=== PATIENT | male | born 1980 | race American Indian/Alaskan Native ===

== ENCOUNTER 2016-12-20 20:19 | Emergency (ER) | payer SELFPAY ==
[2016-12-20 21:25] VITALS: BP 129/84
[2016-12-20] MEDS ORDERED: XYLOCAINE 1% MPF 5 mL INFILTRATI ONE (22:31)
[2016-12-20] MEDS ORDERED: XYLOCAINE 1% MPF 5 mL ONE (22:34)
--- NOTE | 2016-12-20 22:53 | Emergency Department Report ---
ED General Adult HPI - General Chief complaint: Animal Bite Stated complaint: BUG BIT ON RIGHT LEG Time Seen by Provider: 12/20/16 22:28 Source: patient Mode of arrival: Ambulatory Limitations: No Limitations - History of Present Illness Initial comments: pt endorses "I went to sleep 3 days ago and woke up with insect bite it was itching so I scratched it and now its infected" abscess 1x3 cm right anterior thigh, Onset/Timin -: days(s) Location: lower extremity (abscess anterior thigh ) Radiation: non-radiation Quality: aching Consistency: constant Improves with: none Worsens with: none Associated Symptoms: denies other symptoms Treatments Prior to Arrival: none - Related Data Previous Rx's Medication Instructions Recorded Last Taken Type Amoxicillin/K Clav Tab [Augmentin 1 tab PO Q12HR #20 tab 12/20/16 Unknown Rx 875 mg] traMADol [Ultram] 50 mg PO Q6HR PRN #21 tablet 12/20/16 Unknown Rx Allergies Allergy/AdvReac Type Severity Reaction Status Date / Time No Known Allergies Allergy Verified 12/20/16 21:20 ED Review of Systems ROS: Stated complaint: BUG BIT ON RIGHT LEG Other details as noted in HPI Constitutional: denies: chills, fever Eyes: denies: eye pain, eye discharge, vision change ENT: denies: ear pain, throat pain Respiratory: denies: cough, shortness of breath, wheezing Cardiovascular: denies: chest pain, palpitations Endocrine: no symptoms reported Gastrointestinal: denies: abdominal pain, nausea, diarrhea Genitourinary: denies: urgency, dysuria Musculoskeletal: denies: back pain, joint swelling, arthralgia Skin: other (abscess anterior thigh right ). denies: rash, lesions Neurological: denies: headache, weakness, paresthesias Psychiatric: denies: anxiety, depression Hematological/Lymphatic: denies: easy bleeding, easy bruising ED Past Medical Hx - Past Medical History Previous Medical History?: No - Surgical History Past Surgical History?: No - Social History Smoking Status: Current Every Day Smoker Substance Use Type: Alcohol - Medications Home Medications: Home Medications Medication Instructions Recorded Confirmed Last Taken Type Amoxicillin/K Clav Tab [Augmentin 1 tab PO Q12HR #20 tab 12/20/16 Unknown Rx 875 mg] traMADol [Ultram] 50 mg PO Q6HR PRN #21 tablet 12/20/16 Unknown Rx ED Physical Exam - General Limitations: No Limitations General appearance: alert, in no apparent distress - Head Head exam: Present: atraumatic, normocephalic - Eye Eye exam: Present: normal appearance - ENT ENT exam: Present: mucous membranes moist - Neck Neck exam: Present: normal inspection - Respiratory Respiratory exam: Present: normal lung sounds bilaterally. Absent: respiratory distress - Cardiovascular Cardiovascular Exam: Present: regular rate, normal rhythm. Absent: systolic murmur, diastolic murmur, rubs, gallop - GI/Abdominal GI/Abdominal exam: Present: soft, normal bowel sounds - Rectal Rectal exam: Present: deferred - Extremities Exam Extremities exam: Present: normal inspection - Expanded Lower Extremity Exam Right Upper Leg exam: Present: tenderness, erythema (abscess 1x3 cm anterior thigh moderate erythem fluctuant no drainage ) - Back Exam Back exam: Present: normal inspection ED Course Vital Signs 12/20/16 21:20 Temperature 98.6 F Pulse Rate 58 L Respiratory 20 Rate Blood Pressure 129/84 O2 Sat by Pulse 100 Oximetry - I & D Right Anterior Thigh Type of Procedure: Simple Site: right anterior mid thigh Blade Size: 11 I & D Procedure: betadine prep, sterile drapes applied, sterile dressing applied Progress: right anterior abscess 1x3 cm irregular, sight cleaned with betadine solutions, anesthesia with lidocaine 1 % 4cc ,I&D with 11 blade scapel, blunt disection with forcepts, moderate purulent drainage, irrigation with 40 cc ns, wound left open steril dressing applied pt given wound care instruction pt verbalized understanding of same, pt tolerated procedure with minimal distress. ED Medical Decision Making - Medical Decision Making pt endorses "I went to sleep 3 days ago and woke up with insect bite it was itching so I scratched it and now its infected" abscess 1x3 cm right anterior thigh, exam: right anterior midthigh abscess 1x3 cm fluctuant erythema no drainage pain to touch, I&D of same see procedure note , pt given wound care instructions pt verbalized agreemement and understanding of same. pt will return to emergency if 3 days for wound check, pt verbalized agreement and understanding of discharge plan. Critical care attestation.: If time is entered above; I have spent that time in minutes in the direct care of this critically ill patient, excluding procedure time. ED Disposition Clinical Impression: Abscess of right thigh Disposition: DC- TO HOME OR SELFCARE Is pt being admited?: No Does the pt Need Aspirin: No Condition: Good Instructions: Abscess (ED) Prescriptions: Amoxicillin/K Clav Tab [Augmentin 875 mg] 1 tab PO Q12HR #20 tab traMADol [Ultram] 50 mg PO Q6HR PRN #21 tablet PRN Reason: Pain Referrals: PRIMARY CARE, [Primary Care Provider] - 3-5 Days Forms: Work/School Release Form(ED) Time of Disposition: 23:05
== END 2016-12-20 23:10 | disposition home or self-care (01) ==
LOC: ED 20:19
DX: L02.415 Cutaneous abscess of right lower limb (principal); F17.200 Nicotine dependence, unspecified, uncomplicated; W57.XXXA Bitten or stung by nonvenomous insect and other nonvenomous arthropods, initial encounter; Y93.9 Activity, unspecified; Y92.9 Unspecified place or not applicable; Y99.9 Unspecified external cause status
CPT/HCPCS: 99282

== ENCOUNTER 2017-09-09 09:30 | Emergency (ER) | payer SELFPAY ==
[2017-09-09 09:44] VITALS: BP 109/71
--- NOTE | 2017-09-09 12:23 | Emergency Department Report ---
HPI - General Chief Complaint: Eye Problems Time Seen by Provider: 09/09/17 12:04 - HPI HPI: 36 year-old male presents to the emergency department complaining of a 2 day history of bilateral eye redness, irritation, discomfort and drainage. He denies any trauma or any particular incident where something may have gotten into his eyes. He denies any past medical history. He has not taken anything for her symptoms prior to presentation. No recent travel or sick contacts at home. He does not wear glasses. ED Past Medical Hx - Past Medical History Previous Medical History?: No - Surgical History Past Surgical History?: No - Social History Smoking Status: Current Every Day Smoker Substance Use Type: Alcohol, Marijuana - Medications Home Medications: Home Medications Medication Instructions Recorded Confirmed Last Taken Type Amoxicillin/K Clav Tab [Augmentin 1 tab PO Q12HR #20 tab 12/20/16 Unknown Rx 875 mg] traMADol [Ultram] 50 mg PO Q6HR PRN #21 tablet 12/20/16 Unknown Rx Tobramycin [Tobrex] 1 drop OU Q4H #1 bottle 09/09/17 Unknown Rx ED Review of Systems ROS: Stated complaint: EYES SWOLLEN AND RED Other details as noted in HPI Comment: All other systems reviewed and negative Constitutional: denies: chills, fever Eyes: eye pain, eye discharge ENT: denies: ear pain, throat pain Respiratory: denies: cough, shortness of breath, wheezing Cardiovascular: denies: chest pain, palpitations Gastrointestinal: denies: abdominal pain, nausea, diarrhea Genitourinary: denies: urgency, dysuria Musculoskeletal: denies: back pain, joint swelling, arthralgia Skin: denies: rash, lesions Neurological: denies: headache, weakness, paresthesias Physical Exam - Physical Exam Vital Signs: Vital Signs 09/09/17 09:41 Temperature 99.1 F Pulse Rate 62 Respiratory 20 Rate Blood Pressure 109/71 O2 Sat by Pulse 97 Oximetry Physical Exam: GENERAL: The patient is well-developed well-nourished. HENT: Normocephalic. Atraumatic. Patient has moist mucous membranes. EYES: Extraocular motions are intact. Pupils equal reactive to light bilaterally. There is bilateral conjunctival injection. There is a small amount of greenish discharge seen to the medial canthus of the right eye. Visual acuity: OD 20/30, OS 20/40, both eyes 20/25. Average right eye pressure 19, average left eye pressure 20. NECK: Supple. Trachea is midline. CHEST/LUNGS: Clear to auscultation. There is no respiratory distress noted. HEART/CARDIOVASCULAR: Regular. There is no tachycardia. There is no murmur. ABDOMEN: Abdomen is soft, nontender. Patient has normal bowel sounds. There is no abdominal distention. SKIN: Skin is warm and dry. NEURO: The patient is awake, alert, and oriented. The patient is cooperative. The patient has no focal neurologic deficits. The patient has normal speech. MUSCULOSKELETAL: There is no tenderness or deformity. There is no limitation range of motion. There is no evidence of acute injury. ED Course Vital Signs 09/09/17 09:41 Temperature 99.1 F Pulse Rate 62 Respiratory 20 Rate Blood Pressure 109/71 O2 Sat by Pulse 97 Oximetry ED Medical Decision Making - Medical Decision Making Patient presents with bilateral eye irritation, eye redness, tearing and there does appear to be some small amount of discharge in the medial canthus of the right eye. This is all atraumatic. The pupils are equal and reactive to light and are brisk. Visual acuity is reasonable. Patient has eye pressures that are within the normal range with Brayden-Pen. Patient appears to have some level of bilateral conjunctivitis. The pressures are normal and therefore does not appear to be consistent with closed angle glaucoma. The pupils are brisk and therefore it is less likely to be iritis. Nonetheless the patient was placed on antibiotic eyedrops and has been given multiple referrals for ophthalmology. He has been encouraged to return to the emergency Department with any worsening of symptoms or any acute distress. - Differential Diagnosis conjunctivitis, corneal abrasion, iritis Critical Care Time: No Critical care attestation.: If time is entered above; I have spent that time in minutes in the direct care of this critically ill patient, excluding procedure time. ED Disposition Clinical Impression: Conjunctivitis Qualifiers: Conjunctivitis type: acute Acute conjunctivitis type: unspecified Laterality: bilateral Qualified Code(s): H10.33 - Unspecified acute conjunctivitis, bilateral Disposition: DC-01 TO HOME OR SELFCARE Is pt being admited?: No Condition: Stable Instructions: Conjunctivitis (ED) Additional Instructions: Please use the antibiotic eyedrops as prescribed. Please follow up with an leathersmith tomorrow without fail. Return to the emergency Department with any worsening of your symptoms or any acute distress. Prescriptions: Tobramycin [Tobrex] 1 drop OU Q4H #1 bottle Referrals: PRIMARY CARE, [Primary Care Provider] - 3-5 Days ART PEREZ MD [Staff Physician] - [place] SANDRA RESTREPO MD [Staff Physician] - [place] BOBBY FERRERA MD [Staff Physician] - [place] MANUEL HARLEY MD [Staff Physician] - [place] Time of Disposition: 12:23
== END 2017-09-09 12:29 | disposition home or self-care (01) ==
LOC: ED 09:30
DX: H10.33 Unspecified acute conjunctivitis, bilateral (principal); F17.200 Nicotine dependence, unspecified, uncomplicated; F12.10 Cannabis abuse, uncomplicated
CPT/HCPCS: 99282

== ENCOUNTER 2019-02-02 01:04 | Emergency (ER) | payer SELFPAY ==
[2019-02-02] MEDS ORDERED: IBUPROFEN 800 MG TAB PO ONE (01:32)
[2019-02-02] MEDS ORDERED: SODIUM CHLORIDE 0.9% IRR 1,000 ML BOTTLE IR ONE (01:35)
[2019-02-02] MEDS ORDERED: SODIUM CHLORIDE IRRI 500 ML 500 ML IR ONE ×2 (01:50→01:51)
[2019-02-02] MEDS ORDERED: BALANCED SALT IRRIG (BSS) OPHTH SOLN 15 ML ONE (01:56)
[2019-02-02] MEDS ORDERED: TETRACAINE 0.5% OPHTH SOLN 4ML ONE (01:56)
[2019-02-02] MEDS ORDERED: FLUORESCEIN 1 MG STRIP OP ONE ×2 (01:56→06:52)
[2019-02-02] MEDS ORDERED: HYDROcodone/ACETAMINOPHEN 10-325MG TAB PO ONE (02:31)
--- NOTE | 2019-02-02 02:32 | Emergency Department Report ---
ED Eye Problem HPI - General Chief complaint: Eye Problems Stated complaint: CHEMICALS IN EYES Time Seen by Provider: 02/02/19 01:22 Source: patient Mode of arrival: Ambulatory Limitations: No Limitations - History of Present Illness Initial comments: 38-year-old -[place]i male presents with complaints of left thigh pain after chemical exposure at work prior to arrival. Patient states he is unsure of the chemical name and states he believes it's called "chrome yellow" patient states I pain is severe and he has sensitivity to light. He also admits to blurry vision in the left eye. She states the exposure occurred around 11:45 PM. He reports his eye was irrigated at work for 15 minutes. He states his job told him to follow-up with a doctor in the morning. -: [employer]: work If Injury: chemical exposure Eye Symptoms: burning, redness, pain, blurry vision, photophobia Consistency: constant Associated Symptoms: denies: headache, fever Treatments Prior to Arrival: irrigated eye, OTC eye drops - Related Data Previous Rx's Medication Instructions Recorded Last Taken Type Amoxicillin/K Clav Tab [Augmentin 1 tab PO Q12HR #20 tab 12/20/16 Unknown Rx 875 mg] traMADol [Ultram] 50 mg PO Q6HR PRN #21 tablet 12/20/16 Unknown Rx Tobramycin [Tobrex] 1 drop OU Q4H #1 bottle 09/09/17 Unknown Rx Acetaminophen/Codeine [Tylenol 1 tab PO Q6H PRN #10 tab 02/02/19 Unknown Rx /Codeine # 3 tab] Erythromycin [Erythromycin Ophth 1 cm OS Q4H 7 Days #1 tube 02/02/19 Unknown Rx Oint] Allergies Allergy/AdvReac Type Severity Reaction Status Date / Time No Known Allergies Allergy Verified 12/20/16 21:20 ED Review of Systems ROS: Stated complaint: CHEMICALS IN EYES Other details as noted in HPI Comment: All other systems reviewed and negative Eyes: as per HPI. denies: eye discharge ED Past Medical Hx - Past Medical History Previous Medical History?: No - Surgical History Past Surgical History?: No - Social History Smoking Status: Never Smoker Substance Use Type: Alcohol - Medications Home Medications: Home Medications Medication Instructions Recorded Confirmed Last Taken Type Amoxicillin/K Clav Tab [Augmentin 1 tab PO Q12HR #20 tab 12/20/16 Unknown Rx 875 mg] traMADol [Ultram] 50 mg PO Q6HR PRN #21 tablet 12/20/16 Unknown Rx Tobramycin [Tobrex] 1 drop OU Q4H #1 bottle 09/09/17 Unknown Rx Acetaminophen/Codeine [Tylenol 1 tab PO Q6H PRN #10 tab 02/02/19 Unknown Rx /Codeine # 3 tab] Erythromycin [Erythromycin Ophth 1 cm OS Q4H 7 Days #1 tube 02/02/19 Unknown Rx Oint] ED Physical Exam - General Limitations: No Limitations General appearance: alert, in no apparent distress - Head Head exam: Present: atraumatic, normocephalic - Eye Eye exam: Present: normal appearance, EOMI, conjunctival injection (left lower ). Absent: scleral icterus - Expanded Eye Exam Expanded Pupils: Regular, Round: Left, Reactive: Left Sclera/Conjunctival: Injection: Left (corneal abrasions noted at 4pm and 6pm) Visual acuity (R) = 20/: 25 Visual acuity (L) = 20/: 25 With correction: No - Neck Neck exam: Present: normal inspection - Respiratory Respiratory exam: Present: normal lung sounds bilaterally - Cardiovascular Cardiovascular Exam: Present: regular rate, normal rhythm ED Course Vital Signs 02/02/19 01:09 Temperature 98.3 F Pulse Rate 56 L Respiratory 18 Rate Blood Pressure 129/77 O2 Sat by Pulse 100 Oximetry - Reevaluation(s) Reevaluation #1: 02/02/19 01:26 Informedd charge nurse that there are no pH strips available to use to tests the patient's pH level of his eye. Corneal abrasion noted at 4 PM and 6 PM using fluoroscopy seen sustained in with plan. Will irrigate the eye using a Joel's lens. 02/02/19 04:34 Reevaluation #2: 02/02/19 04:28 Patient now able to find the chemical he was exposed to. Chemical is called Quo rum Yellow. After looking this chemical up online it is noted to be a chlorinated alkaline detergent. After researching online, found information are up-to-date that stated urine dipstick strips could be used tests the patient's pH. Strips were obtained from the lab. PH of right eye is at 7 and the pH of the left eye is at 8 after 1 hour of saline irrigation using the Joel lens. Discussed patient with Dr. De La Rosa. Recommends another hour of saline irrigation using the Joel lens and recheck in of PH after. Followed up with Jimi from poison control-states patient okay to [place] home with erythromycin antibiotic ointment and follow-up with ophthalmology first thing in the morning. 02/02/19 05:38 Reevaluation #3: 02/02/19 05:36 Second hour-long irrigation on the left thigh performed using 1 L of normal saline. Mild improvement in pH noted, however pH still appears to be slightly above 7. Visual acuity test is 20/25 bilaterally. Patient denies any further vision changes or blurry vision. He states pain is controlled. Discussed patient with Dr. De La Rosa-states patient is stable for home and follow-up with ophthalmology first thing in the morning. Discussed strict return precautions in detail with patient who states understanding. Patient to DE home with erythromycin ointment and pain medication. Critical care attestation.: If time is entered above; I have spent that time in minutes in the direct care of this critically ill patient, excluding procedure time. ED Disposition Clinical Impression: Chemical burn of left eyelid Qualifiers: Encounter type: initial encounter Qualified Code(s): T26.52XA - Corrosion of left eyelid and periocular area, initial encounter Disposition: DC-01 TO HOME OR SELFCARE Is pt being admited?: No Condition: Stable Instructions: Chemical Eye Minor (ED) Prescriptions: Erythromycin [Erythromycin Ophth Oint] 1 cm OS Q4H 7 Days #1 tube Acetaminophen/Codeine [Tylenol /Codeine # 3 tab] 1 tab PO Q6H PRN #10 tab PRN Reason: Pain , Severe (7-10) Referrals: MANUEL HARLEY MD [Staff Physician] - [facility]
[2019-02-02] MEDS ORDERED: HYDROcodone/ACETAMINOPHEN 10-325MG TAB ONE (02:35)
[2019-02-02] MEDS ORDERED: TETRACAINE 0.5% OPHTH SOLN 4ML OS ONE (04:00)
[2019-02-02] MEDS ORDERED: SODIUM CHLORIDE 0.9% 1000 ML 1,000 ML IV ONE (04:22)
[2019-02-02] MEDS ORDERED: LORazepam 1 MG TAB PO ONE (04:24)
[2019-02-02 05:59] VITALS: BP 121/74
[2019-02-02] MEDS ORDERED: BALANCED SALT IRRIG (BSS) OPHTH SOLN 15 ML OS ONE (06:57)
== END 2019-02-02 05:45 | disposition home or self-care (01) ==
LOC: ED 01:04
DX: T26.52XA Corrosion of left eyelid and periocular area, initial encounter (principal); Z79.899 Other long term (current) drug therapy; X58.XXXA Exposure to other specified factors, initial encounter; Y93.89 Activity, other specified; Y92.89 Other specified places as the place of occurrence of the external cause; Y99.8 Other external cause status
CPT/HCPCS: 99284; J7030